=== PATIENT | female | born 2000 | race Caucasian/White ===

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

== ENCOUNTER 2023-07-26 21:12 | Emergency (ER) | payer OTHER, SELFPAY ==
[2023-07-26] VITALS (23 sets, daily range): BP systolic 109–141; BP diastolic 56–93; PULSE 100–149; RESP 13–22; TEMP 36.8; O2SAT 98–100
--- NOTE | ~2023-07-26 | XR_ITS ---
EXAMINATION: XR chest 1V portable DATE: 07/26/2023 21:37 INDICATION: Palpitations. TECHNIQUE: A single frontal view of the chest was obtained. COMPARISON: None. FINDINGS: There is no pneumonia, pleural effusion, or pneumothorax. The heart size is normal. IMPRESSION: 1. No acute cardiopulmonary disease. Reviewed, dictated and finalized at location E. [employer]PA[employer] TECHNICIAN
--- NOTE | 2023-07-26 21:24 | ECG_ITS ---
Measurements Intervals [place] Rate: 132 P: 69 WA: 147 QRS: 75 QRSD: 77 T: 55 QT: 330 QTc: 490 Interpretive Statements SINUS TACHYCARDIA NONSPECIFIC T-WAVE ABNORMALITY- ANT/INF LEADS BASELINE WANDER- II, III, AVF, V3-V6 ABNORMAL ECG NO PREVIOUS ECG AVAILABLE FOR COMPARISON Electronically Signed On 07-27-2023 6:50:10 [employer] SPECIALIST by Fredo Vázquez D.O.
[2023-07-26 22:01] LABS: Basophils Absolute Auto 0.06 K/mm3 (0.00-0.10); Basophils Percent Auto 0.4 % (0.0-1.0); Eosinophils Absolute Auto 0.02 K/mm3 (0.02-0.50); Eosinophils Percent Auto 0.1 % (1.0-6.0); Hematocrit 39.3 % (35.0-49.0); Hemoglobin 13.7 g/dL (12.0-15.0); Immature Granulocyte Absolute 0.04 K/mm3 (0.00-0.00); Immature Granulocyte Percent A 0.3 % (0.0-0.0); Lymphocytes Absolute Auto 2.09 K/mm3 (1.10-4.50); Lymphocytes Percent Auto 14.7 % (18.0-42.0); Mean Corpuscular HGB Conc 34.9 g/dL (32.0-36.0); Mean Corpuscular Hemoglobin 29.8 pg (27.0-31.0); Mean Corpuscular Volume 85.4 fL (78.0-102.0); Mean Platelet Volume 10.1 fl (9.2-11.8); Monocytes Absolute Auto 0.82 K/mm3 (0.10-0.90); Monocytes Percent Auto 5.8 % (2.0-11.0); Neutrophils Absolute Auto 11.2 K/mm3 (1.7-7.2); Neutrophils Percent Auto 78.7 % (50.0-70.0); Platelet Count Result 324 K/mm3 (150-420); Red Cell Distribution Width 11.8 % (11.6-14.4); White Blood Count 14.2 K/mm3 (4.8-10.8)
[2023-07-26 22:15] LABS: D Dimer 0.34 mg/L (0.19-0.50)
[2023-07-26] MEDS: SODIUM CHLORIDE 0.9% IV 1,000 ML 999 ML IV CONT (22:20)
[2023-07-26 22:28] LABS: Alanine Aminotransferase 18 U/L (14-59); Albumin Level 4.5 g/dL (3.4-5.0); Alkaline Phosphatase 79 U/L (46-116); Anion Gap 16 mmol/L (8-16); Aspartate Amino Transferase 22 U/L (15-37); Bilirubin,Total 0.5 mg/dL (0.00-1.00); Blood Urea Nitrogen 17 mg/dL (7-18); Calcium 9.6 mg/dL (8.5-10.1); Carbon Dioxide 20 mmol/L (21-32); Chloride 103 mmol/L (98-108); Estimated CRCL calculation 89 ml/min; Estimated Glomerular Filt Rate > 60; Glucose 118 mg/dL (70-99); Osmolality Calculated 290 mOsm/kg (285-295); Potassium 3.2 mmol/L (3.5-5.1); Sodium 139 mmol/L (136-145); Total Protein 7.9 g/dL (6.4-8.2)
[2023-07-26] MEDS: dilTIAZem HCl INJ 25 MG/5 ML VIAL 5 MG IV PUSH (22:31)
[2023-07-26 22:37] LABS: Troponin I < 4.0 ng/L (0.00-60.4)
[2023-07-26 22:39] LABS: SARS-CoV-2 RNA PCR Negative (Negative)
--- NOTE | 2023-07-26 22:40 | ED.ARRPALP ---
HPI - Arrhythmia/Palpitations General Chief Complaint: Arrhythmia/Palpitations Stated Complaint: elevated heart rate Time Seen by Provider: 07/26/23 21:17 Source: patient Mode of arrival: ambulatory Limitations: no limitations History of Present Illness HPI narrative: this is a 22-year-old female who presents with some rapid heart rate started earlier today after she was working out and currently sustained feels like her heart is racing and palpitations with no chest pain no shortness of breath no diaphoresis some no history of rapid heart rhythm or palpitations, the patient denies having any energy drinks for the past week, no significant past medical history no fever chills heart rate initially at 1:48 a.m. with a blood pressure 141/82 O2 sats at 100% on room air. Patient denies chest pain no shortness of breath no nausea vomiting no diaphoresis no abdominal pain no flank pain no dysuria. MD complaint: rapid heart beat and heart racing Onset (ago): hour(s) Duration: constant Severity: moderate Context: occurred during rest Arrhythmia history: SVT Associated symptoms: denies other symptoms Related Data Allergies Allergy/AdvReac Type Severity Reaction Status Date / Time ibuprofen [From Motrin] Allergy Unknown Verified 07/27/23 03:13 Penicillins Allergy Unknown Verified 07/27/23 03:13 Review of Systems Review of Systems: All systems reviewed & are unremarkable except as noted in HPI and below PMFSH Past Medical History Medical History Patient denies medical problems Exam Const: General: healthy appearing Nutritional Appearance: well nourished Orientation/consciousness: patient oriented x3 Limitations: no limitations HENMT: Head: normal to inspection Eyes: Conjunctivae: conjunctivae normal Pupils: Equal, round and reactive pupils present Neck: Neck: normal visual inspection, no lymphadenopathy and no meningeal signs Resp: Effort & Inspection: normal respiratory effort Auscultation: clear to auscultation bilaterally Cardio: Rate: tachycardic Rhythm: regular rhythm GI: Auscultation: normal bowel sounds : General: Yes bladder normal to palpation Back/Spine/Pelvis: Back: no CVA tenderness Skin: General skin exam: normal color Rashes: no rashes Neuro: General: patient oriented x3, moves all extremities, no meningeal signs and no focal motor deficits Extrem: General: normal to inspection and no clubbing, cyanosis or edema Psych: Mental Status: mental status grossly normal Affect: Anxious affect present Course Course Emergency Course: patient had EKG performed which shows some sinus tachycardia rate on EKG 132 patient initially came in with a heart rate of 148. Labs performed which showed hypokalemia with a potassium level of 3.2 the rest of her [place] [id number] with normal troponin negative D-dimer chest x-ray shows no acute cardiopulmonary findings. Patient did receive adenosine 6 and then 12 and another 12 which did not improve her heart rate, and then Cardizem initially 5mg IV bolus was given and improved heart rate down to 120s a 2nd 5mg IV bolus was administered and current heart rate is 103 to 105 blood pressure 1 20s over over 80s. Patient appears comfortable no chest pain no shortness of breath. Vital Signs Vital signs: Vital Signs Pulse Rate 148 H 07/26/23 21:15 Temperature 36.8 C 07/26/23 21:16 Pulse Rate 148 H 07/26/23 21:16 Respiratory Rate 20 07/26/23 21:16 Blood Pressure 141/82 H 07/26/23 21:16 Pulse Oximetry 100 07/26/23 21:16 Oxygen Delivery Room Air 07/26/23 21:16 MDM - Arrhythmia/Palpitations Lab Data 07/26/23 21:56 07/26/23 21:57 Labs: Lab Results 07/26/23 07/26/23 Range/Units 21:56 21:57 WBC 14.2 H (4.8-10.8) K/mm3 RBC 4.60 (4.20-5.40) M/mm3 Hgb 13.7 (12.0-15.0) g/dL Hct 39.3 (35.0-49.0) % MCV 85.
[2023-07-26 22:41] LABS: Influenza A QL RT-PCR Negative (Negative); Influenza B QL RT-PCR Negative (Negative); RSV RNA, RT-PCR Negative (Negative)
[2023-07-26 22:54] LABS: Magnesium 1.7 mg/dL (1.8-2.4)
[2023-07-26] MEDS: dilTIAZem 100 MG/100 ML 100 MG/100 ML BAG IV CONT (22:59)
[2023-07-26] MEDS: POTASSIUM BICARBONATE 25 MEQ TABEF 50 MEQ PO (23:19)
[2023-07-27] VITALS (32 sets, daily range): BP systolic 96–128; BP diastolic 45–69; PULSE 73–114; RESP 13–20; TEMP 37.1–37.2; O2SAT 97–100
[2023-07-27 00:10] LABS: Pregnancy On Board Control Positive; Urine Pregnancy Test Negative
[2023-07-27] MEDS: MAGNESIUM OXIDE 400 MG TABLET PO (02:41)
== END 2023-07-27 03:35 | disposition short-term general hospital (02) ==
PROVIDERS: Emergency Provider Emergency Medicine; PCP Family Medicine
DX: I47.10 Supraventricular tachycardia, unspecified (principal); Z20.822 Contact with and (suspected) exposure to COVID-19
CPT/HCPCS: 36415; 71045; 80053; 81025; 83735; 84443; 84484; 85025; 85380; 87637; 93005; 96365; 96366; 96375; 99285; A9270; J0153; J7030

== ENCOUNTER 2023-08-31 17:22 | Emergency (ER) | payer OTHER, SELFPAY ==
[2023-08-31 17:22] VITALS: BP 128/67; PULSE 83; RESP 12; TEMP 37.2; O2SAT 100
--- NOTE | 2023-08-31 17:39 | ECG_ITS ---
Measurements Intervals [place] Rate: 61 P: 18 ND: 125 QRS: 76 QRSD: 83 T: 19 QT: 409 QTc: 413 Interpretive Statements SINUS RHYTHM WITH SINUS ARRHYTHMIA NONSPECIFIC T-WAVE ABNORMALITY ABNORMAL ECG COMPARED TO ECG 07/26/2023 21:30:03 SINUS RHYTHM NOW PRESENT SINUS ARRHYTHMIA NOW PRESENT T-WAVE ABNORMALITY NOW PRESENT Electronically Signed On 09-01-2023 10:22:27 [employer] by Yamil Welch M.D.
--- NOTE | 2023-08-31 17:39 | ED.CHESTPAIN ---
HPI - Chest Pain General Chief Complaint: Chest Pain Stated Complaint: chest pain and jaw pain Time Seen by Provider: 08/31/23 17:27 Source: patient Mode of arrival: ambulatory Limitations: no limitations History of Present Illness HPI narrative: Patient is a 22-year-old female with significant past medical history that presents today for chest pain and multiple other complaints. Patient states she has sinus tachycardia syndrome and she was diagnosed with this by [employer] a few weeks ago. She states that he did not explain very well to her but he did put her on metoprolol extended release twice a day. She says this has helped getting less amount of time she has a sinus tachycardia. How also explained her how to terminate size high cardiac getting into a squatting position for 8 minute. She also states she has aches and pains the pains are her on her neck and on her legs and her arms basically most places in her body. She says aches and pains have been going on for the last 2 days now. She says she does stay hydrated and drinks water and Gatorade. She might not be getting enough water however. MD complaint: chest pain and other ( Body aches and pains) Pertinent past history: other ( sinus tachycardia syndrome) Onset (ago): day(s) Timing of current episode: episodic Prior episodes: Yes Onset: during rest and during exertion Pain location: substernal Pain radiation: right arm, left arm, back, neck, abdomen, left shoulder, left scapula, right shoulder and right scapula Severity: moderate Pain scale (0-10): 3 Quality: sharp Relieving factors: nothing Exacerbating factors: nothing Associated symptoms: diaphoresis Treatment prior to arrival: aspirin Risk Factors Coronary artery disease risk factors: none Thoracic aortic dissection risk factors: none Related Data On Oral Contraceptives: Yes Home Medications Medication Instructions Recorded Confirmed metoprolol tartrate 25 mg tablet 12.5 mg PO DAILY 08/31/23 08/31/23 Allergies Allergy/AdvReac Type Severity Reaction Status Date / Time ibuprofen [From Motrin] Allergy Unknown Verified 08/31/23 17:29 orange Allergy Rash Verified 08/31/23 17:43 Penicillins Allergy Unknown Verified 08/31/23 17:29 Review of Systems Review of Systems: All systems reviewed & are unremarkable except as noted in HPI and below Constitutional: Constitutional: Reports no additional constitutional complaints Eyes: Eyes: Reports no additional eye complaints ENT: Reports system reviewed and no additional complaints, except as documented Cardiovascular: Cardiovascular: Reports no additional cardiovascular complaints Respiratory: Respiratory: Reports no additional respiratory complaints Gastrointestinal: Gastrointestinal: Reports no additional gastrointestinal complaints Genitourinary: Genitourinary: Reports no additional female genitourinary complaints Musculoskeletal: Musculoskeletal: Reports no additional musculoskeletal complaints Integumentary/Breasts: Skin/Breast: Reports system reviewed and no additional complaints, except as docu Neurologic: Reports system reviewed and no additional complaints, except as documented Psychiatric: Psychiatric: Reports no additional psychiatric complaints Endocrine: Endocrine: Reports no additional endocrine complaints Hematologic/Lymphatic: Hematologic/Lymphatic: Reports no additional hematologic/lymphatic complaints Allergic/Immunologic: Allergic/Immunologic: Reports no additional allergic/immunologic complaints PMFSH Past Medical History Medical History Patient denies medical problems Exam Const: General: cooperative, healthy appearing, comfortable and no acute distress Nutritional Appearance: average body habitus Orientation/consciousness: oriented to person, oriented to place, oriented to time and patient oriented x3 Limitations: no limitations HENMT: Head: normal to inspection
[2023-08-31 18:15] LABS: Basophils Absolute Auto 0.06 K/mm3 (0.00-0.10); Basophils Percent Auto 0.4 % (0.0-1.0); Eosinophils Absolute Auto 0.21 K/mm3 (0.02-0.50); Eosinophils Percent Auto 1.5 % (1.0-6.0); Hematocrit 43.2 % (35.0-49.0); Hemoglobin 14.8 g/dL (12.0-15.0); Immature Granulocyte Absolute 0.08 K/mm3 (0.00-0.00); Immature Granulocyte Percent A 0.6 % (0.0-0.0); Lymphocytes Absolute Auto 3.91 K/mm3 (1.10-4.50); Lymphocytes Percent Auto 28.2 % (18.0-42.0); Mean Corpuscular HGB Conc 34.3 g/dL (32.0-36.0); Mean Corpuscular Hemoglobin 28.9 pg (27.0-31.0); Mean Corpuscular Volume 84.4 fL (78.0-102.0); Mean Platelet Volume 10.1 fl (9.2-11.8); Monocytes Absolute Auto 1.03 K/mm3 (0.10-0.90); Monocytes Percent Auto 7.4 % (2.0-11.0); Neutrophils Absolute Auto 8.6 K/mm3 (1.7-7.2); Neutrophils Percent Auto 61.9 % (50.0-70.0); Platelet Count Result 261 K/mm3 (150-420); Red Blood Count 5.12 M/mm3 (4.20-5.40); Red Cell Distribution Width 11.2 % (11.6-14.4); White Blood Count 13.9 K/mm3 (4.8-10.8)
[2023-08-31] MEDS: SODIUM CHLORIDE 0.9% IV 1,000 ML 999 ML IV CONT (18:20)
[2023-08-31 18:32] LABS: Alanine Aminotransferase 21 U/L (14-59); Albumin Level 3.9 g/dL (3.4-5.0); Alkaline Phosphatase 79 U/L (46-116); Anion Gap 16 mmol/L (8-16); Aspartate Amino Transferase 15 U/L (15-37); Bilirubin,Total 0.3 mg/dL (0.00-1.00); Blood Urea Nitrogen 15 mg/dL (7-18); Calcium 9.2 mg/dL (8.5-10.1); Carbon Dioxide 19 mmol/L (21-32); Chloride 104 mmol/L (98-108); Creatine Kinase 37 U/L (26-192); Estimated Glomerular Filt Rate > 60; Glucose 90 mg/dL (70-99); Osmolality Calculated 288 mOsm/kg (285-295); Potassium 3.3 mmol/L (3.5-5.1); Sodium 139 mmol/L (136-145); Total Protein 7.1 g/dL (6.4-8.2)
[2023-08-31 18:36] LABS: Troponin I < 4.0 ng/L (0.00-60.4)
[2023-08-31 19:17] VITALS: BP 136/84; PULSE 84; RESP 18; TEMP 36.6; O2SAT 100
== END 2023-08-31 19:21 | disposition home or self-care (01) ==
PROVIDERS: Emergency Provider Family Medicine; PCP Family Medicine
DX: R07.9 Chest pain, unspecified (principal); R00.0 Tachycardia, unspecified
CPT/HCPCS: 36415; 80053; 82550; 84484; 85025; 93005; 96360; 99284; J7030